=== PATIENT | female | born 1950 | race Caucasian/White ===

== ENCOUNTER 2017-01-17 08:42 | Emergency (ER) | payer MEDICARE, OTHER ==
--- NOTE | 2017-01-17 09:37 | UC ---
Minor Trauma HPI - HPI Summary HPI Summary: Fell in the parking lot after leaving work last night. Building and parking lot are not owned by her employer. Has pain in R forearm and L knee. Is able to walk. - History of Current Complaint Chief Complaint: UCLowerExtremity Stated Complaint: LEFT ARM & RIGHT KNEE PAIN-FALL -WC Time Seen by Provider: 01/17/17 09:07 Hx Obtained From: Patient Hx Last Menstrual Period: n/a ?: No Onset/Duration: Sudden Onset Onset Of Pain: Immediate Severity Initially: Mild Severity Currently: Moderate Mechanism Of Injury: Fall From A Standing Position Aggravating Factor(s): Ambulation, Movement, Weight Bearing Alleviating Factor(s): Nothing Associated Signs And Symptoms: Negative: Loss Of Consciousness, Ecchymosis, Swelling - Allergies/Home Medications Allergies/Adverse Reactions: Allergies Allergy/AdvReac Type Severity Reaction Status Date / Time No Known Allergies Allergy Verified 01/17/17 08:59 PMH/Surg Hx/FS Hx/Imm Hx Cardiovascular History Of: Reports: Hypertension - Surgical History Surgical History: Yes Surgery Procedure, Year, and Place: Bilateral [place], [place], [facility] [place] Family History Known Family History: Positive: Respiratory Disease - Social History Occupation: Employed Part-time Alcohol Use: None Substance Use Type: None Smoking Status (MU): Heavy Every Day Tobacco Smoker Type: Cigarettes Amount Used/How Often: 1/2 PPD Length of Time of Smoking/Using Tobacco: since age 21 Have You Smoked in the Last Year: Yes Review of Systems Constitutional: Negative Skin: Negative Eyes: Negative ENT: Negative Respiratory: Negative Cardiovascular: Negative Gastrointestinal: Negative Genitourinary: Negative Motor: Negative Neurovascular: Negative Musculoskeletal: Arthralgia, Decreased ROM Neurological: Negative Psychological: Negative All Other Systems Reviewed And Are Negative: Yes Physical Exam Triage Information Reviewed: Yes Appearance: Well-Appearing, No Pain Distress, Well-Nourished Vital Signs: Initial Vital Signs Temp 98.4 F 01/17/17 08:57 Pulse 84 01/17/17 08:57 Resp 16 01/17/17 08:57 BP 187/118 01/17/17 08:57 Pulse Ox 97 01/17/17 08:57 Vital Signs Reviewed: Yes Eye Exam: Normal Eyes: Positive: Conjunctiva Clear ENT Exam: Normal ENT: Positive: Normal ENT inspection, Hearing grossly normal, Pharynx normal, TMs normal Dental: Positive: Gross Decay/Caries @ Neck exam: Normal Neck: Positive: Nontender Respiratory Exam: Normal Respiratory: Positive: Chest non-tender, Lungs clear, Normal breath sounds, No respiratory distress, No accessory muscle use Cardiovascular Exam: Normal Cardiovascular: Positive: RRR, No Murmur Musculoskeletal Exam: Other - no bony tenderness in R knee or L wrist/elbow. Pain in R knee only with weight bearing, gait improves significantly after 2-3 stpes. 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 Musculoskeletal: Positive: ROM Intact, Strength Limited @ - L industrial sales manager Neurological Exam: Normal Psychological Exam: Normal Skin Exam: Other - abrasion R knee Minor Trauma Course/Dx - Differential Dx/Diagnosis Provider Diagnoses: R knee contusion. L forearm tendon/muscle strain Discharge - Discharge Plan Condition: Stable Disposition: HOME Prescriptions: Naproxen [Naproxen 500 MG TABS] 500 mg PO BID #20 tab Patient Education Materials: Contusion in Adults (ED), Tendinitis (ED) Forms: *Work Release Referrals: [facility] [place] [facility] [Outside] Jannet England MD [Medical Doctor] - If Needed Additional Instructions: Because your tendon and muscle strains were from a sudden injury, some rest and the passage of time should help you resolve completely. Simply avoid activities that provoke the most pain. See the orthopedist if you do not see some clear improvement by the end of the week. To arrange care in [place], call [phone] Please contact a primary care provider to establish care and discuss your elevated blood pressure within 2 weeks.
[2017-01-17 09:49] VITALS: BP 203/111
== END 2017-01-17 09:51 | disposition home or self-care (01) ==
LOC: UCCORT 08:42
DX: S80.01XA Contusion of right knee, initial encounter (principal); S56.912A Strain of unspecified muscles, fascia and tendons at forearm level, left arm, initial encounter; W18.30XA Fall on same level, unspecified, initial encounter; Y93.9 Activity, unspecified; Y92.481 Parking lot as the place of occurrence of the external cause; Y99.0 Civilian activity done for income or pay; F17.210 Nicotine dependence, cigarettes, uncomplicated
CPT/HCPCS: 99213; G0463

== ENCOUNTER 2019-06-02 18:53 | Emergency (ER) | payer MEDICARE ==
[2019-06-02 19:08] VITALS: BP 140/110
--- NOTE | 2019-06-02 19:20 | UC ---
Respiratory Complaint HPI - HPI Summary HPI Summary: Starting on with sore throat. Sore throat went away then developed cough and runny nose. Pt states now her chest feels congested. Possible fever in the night Patient is a 69 year old female , who present today sore throat with for past 3 days. She reports that starting , noticed some sore throat that has resolved and now she has developed cough and runny nose. Now feels chest is congested. Subjective fevers but did not take anty temp. Denies any sick contact. No PND. Cough is non productive. Also has runny nose. Denies any chest pain or shortness of breath . Denies any abdominal pain , nausea or vomiting , diarrhea or constipation. Her BP s high, does not moi any medication, she does not have PCP. . - History of Current Complaint Chief Complaint: UCGeneralIllness Stated Complaint: ST/CONGESTION Time Seen by Provider: 06/02/19 19:09 Hx Obtained From: Patient Hx Last Menstrual Period: n/a Pain Intensity: 0 - Allergies/Home Medications Allergies/Adverse Reactions: Allergies Allergy/AdvReac Type Severity Reaction Status Date / Time No Known Allergies Allergy Verified 06/02/19 19:08 PMH/Surg Hx/FS Hx/Imm Hx - Additional Past Medical History Additional PMH: Past Medical History:HTN( not taking any meds) Past Surgical history:B/L TKA Family history: non contributory Social history:daily smoker, no alcohol use , no substance abuse. Previously Healthy: Yes - Surgical History Surgical History: Yes Surgery Procedure, Year, and Place: Bilateral [place]KA, 2004, [facility] [place] - Family History Known Family History: Positive: Respiratory Disease, Non-Contributory - Social History Alcohol Use: None Substance Use Type: None Smoking Status (MU): Heavy Every Day Tobacco Smoker Type: Cigarettes Amount Used/How Often: 1/2 PPD Length of Time of Smoking/Using Tobacco: since age 21 Have You Smoked in the Last Year: Yes Review of Systems All Other Systems Reviewed And Are Negative: Yes Constitutional: Positive: Negative Eyes: Positive: Negative ENT: Positive: Sore Throat, Nasal Discharge, Other - chest congestion Respiratory: Positive: Cough - non productive. Negative: Shortness Of Breath Cardiovascular: Positive: Negative. Negative: Chest Pain Gastrointestinal: Positive: Negative Genitourinary: Positive: Negative Motor: Positive: Negative Neurovascular: Positive: Negative Musculoskeletal: Positive: Negative Neurological: Positive: Negative Psychological: Positive: Negative Is Patient Immunocompromised?: No Physical Exam - Summary Physical Exam Summary: Vital Signs Reviewed: Yes A+Ox3, no distress Eyes: Conjunctiva Clear ENT: Hearing grossly normal . TM normal bilaterally. no pharyngeal erythema or exudates. No lymphadenopathy. neck: supple Respiratory: poor air entry bilaterally, rhonchi noted bilaterally in lower lung jarrett. Cardiovascular: RRR, S1S2 normal , no murmur Abdomen: soft, non tender, BS+, no guarding , rigidity or rebound tenderness noted. Musculoskeletal Exam: BARROW x 4 without difficulty Neurological: Positive: Alert, ambulatory without difficulty Psychological: Positive: Normal Response To Family Skin: Positive: no rash, no ecchymosis Triage Information Reviewed: Yes Vital Signs: Initial Vital Signs Temp 97.7 F 06/02/19 19:01 Pulse 102 06/02/19 19:01 Resp 16 06/02/19 19:01 BP 140/110 06/02/19 19:01 Pulse Ox 98 06/02/19 19:01 Vital Signs Reviewed: Yes Respiratory Course/Dx - Course Course Of Treatment: During the visit today, we discussed the findings consistent with bronchitis and since she has poor air entry and rhonchi, nebuliozer treatment was offered and she declined. 1 MDI albuterol treatment given . 1 dose of azithromycin and prednisone given and rest prescribed to pharmacy . Her BP is high today, she denies any symptoms of chest pain or SOB or visual problems. She does not have PCP and i encouraged her to follow up with PCP in 1 to days, Information on local primary care provider given and referral put in the chart. Patient expressed understanding . - Differential Dx/Diagnosis Provider Diagnosis: Bronchitis Discharge - Sign-Out/Discharge Documenting (check all that apply): Patient Departure All imaging exams completed and their final reports reviewed: No Studies - Discharge Plan Condition: Stable Disposition: HOME Prescriptions: Azithromycin TAB* [Zithromax TAB (Z-HOWARD) 250 mg #6 tabs] 250 mg PO DAILY 4 Days #4 tab predniSONE [Prednisone 20 MG TAB] 60 mg PO DAILY 4 Days #12 tablet Patient Education Materials: Acute Bronchitis (ED) Referrals: [facility] [place] [Provider Group] - 1 Day No Primary Care Phys,NOPCP [Primary Care Provider] - Additional Instructions: Start taking the medication . It has been prescribed to the pharmacy . Follow up with primary care doctor in 1 to 2 days for your blood pressure and routine care . Patients blood pressure slightly high in Urgent care today , plan follow up with PCP for better control . Return to Urgent care / ER if symptoms get worse. - Billing Disposition and Condition Condition: STABLE Disposition: Home
[2019-06-02] MEDS ORDERED: Azithromycin TAB* 250 MG PO ONE (19:27)
[2019-06-02] MEDS ORDERED: Albuterol HFA INHALER* 8 gm MDI INH ONE ×2 (19:28→19:37)
[2019-06-02] MEDS ORDERED: predniSONE TAB* 20 MG PO ONE (19:29)
[2019-06-02] MEDS ORDERED: predniSONE TAB* 20 MG ONE (19:48)
== END 2019-06-02 19:51 | disposition home or self-care (01) ==
LOC: UCCORT 18:53
DX: J40 Bronchitis, not specified as acute or chronic (principal); F17.210 Nicotine dependence, cigarettes, uncomplicated
CPT/HCPCS: 99213; A9270-GY; G0463; J7512